=== PATIENT | female | born 1980 | race Caucasian/White ===

== ENCOUNTER 2018-10-16 10:13 | Emergency (ER) | payer MEDICAID ==
[~2018-10-16] VITALS: Ht 160 cm; Wt 68.0 kg
--- NOTE | 2018-10-16 10:26 | NUR ---
EMMA DREW AT BEDSIDE FOR MSE.
[2018-10-16 10:57] LABS: *URINE HCG, QUAL NEGATIVE (NEGATIVE)
[2018-10-16] MEDS ORDERED: PROCHLORPERAZINE EDISYLATE 10 MG/2 ML VIAL IM ONE (11:15)
[2018-10-16] MEDS ORDERED: KETOROLAC TROMETHAMINE 30 MG INJ IM ONE (11:15)
[2018-10-16] MEDS ORDERED: PROCHLORPERAZINE EDISYLATE 10 MG/2 ML VIAL ONE (11:20)
[2018-10-16] MEDS ORDERED: KETOROLAC TROMETHAMINE 30 MG INJ ONE (11:20)
--- NOTE | 2018-10-16 11:23 | NUR ---
Patient discharged to home in stable conditon. Written and verbal after care instructions given. Patient verbalizes understanding of instructions. ALL BELONGINGS W/ PT. PT SELF-AMBULATED W/O DIFFICULTY.
[2018-10-16 11:24] VITALS: BP 122/79
== END 2018-10-16 11:25 | disposition home or self-care (01) ==
LOC: ER 10:13
DX: G43.909 Migraine, unspecified, not intractable, without status migrainosus (principal); R11.0 Nausea; F17.290 Nicotine dependence, other tobacco product, uncomplicated; J45.909 Unspecified asthma, uncomplicated
CPT/HCPCS: 84703; 96372 ×2; 99283; 99406; J0780; J1885; A4663